=== PATIENT | male | born 1995 | race African-American/Black ===

== ENCOUNTER 2022-03-21 12:45 | Emergency (ER) | payer MEDICAID ==
[~2022-03-21] VITALS: Ht 167.6 cm; Wt 73.0 kg
[2022-03-21] MEDS ORDERED: KETOROLAC 60MG/2ML VIAL IM ONE (13:15)
[2022-03-21] MEDS ORDERED: METHOCARBAMOL 500MG TABLET PO ONE (13:15)
[2022-03-21] MEDS ORDERED: METHOCARBAMOL 500MG TABLET PO NR (14:30)
[2022-03-21] MEDS ORDERED: NAPR-681 MT (15:26)
[2022-03-21] MEDS ORDERED: METH-773 MT (15:26)
[2022-03-21 15:43] VITALS: BP 121/78
== END 2022-03-21 15:43 | disposition home or self-care (01) ==
LOC: ER 12:45
DX: S09.8XXA Other specified injuries of head, initial encounter (principal); S80.12XA Contusion of left lower leg, initial encounter; S16.1XXA Strain of muscle, fascia and tendon at neck level, initial encounter; S39.012A Strain of muscle, fascia and tendon of lower back, initial encounter; V43.52XA Car driver injured in collision with other type car in traffic accident, initial encounter; W22.11XA Striking against or struck by driver side automobile airbag, initial encounter; Y93.89 Activity, other specified; Y92.488 Other paved roadways as the place of occurrence of the external cause
CPT/HCPCS: 72100; 73110; 73590; 96372; 99284; J1885